=== PATIENT | male | born 1950 | race Caucasian/White ===

== ENCOUNTER 2016-10-28 18:34 | Inpatient (IN) | payer MEDICARE, MEDICAID ==
[2016-10-28] MEDS ORDERED: IPRATROPIUM BROMIDE 0.02% NEB 0.5 MG/2.5 ML AMPUL NEB PRN (19:43)
[2016-10-28] MEDS ORDERED: ALBUTEROL SULFATE 0.083% NEB 2.5 MG/3 ML AMPUL NEB ONE (19:43)
[2016-10-28] MEDS ORDERED: METHYLPREDNISOLONE INJ 125 MG/2 ML SDV IV ONE (19:47)
[2016-10-28 19:49] LABS: ABSOLUTE LYMPHOCYTES (AUTO) 0.8 10^3/uL (0.5-4.7); ABSOLUTE MONOCYTES (AUTO) 0.6 10^3/uL (0.1-1.4); ABSOLUTE NEUT (AUTO) 4.8 10^3/uL (1.7-8.2); BASOPHILS % (AUTO) 0.7 % (0-2); EOSINOPHILS % (AUTO) 0.1 % (0-6); HEMATOCRIT 33.4 % (37.9-51.0); HEMOGLOBIN 10.9 g/dL (13.5-17.0); HGB HCT DIFFERENCE -0.7; LYMPHOCYTES % (AUTO) 12.6 % (13-45); MEAN CORPUSCULAR HEMOGLOBIN 25.5 pg (27.0-33.4); MEAN CORPUSCULAR HGB CONC 32.8 g/dL (32.0-36.0); MEAN CORPUSCULAR VOLUME 78 fl (80-97); MONOCYTES % (AUTO) 9.7 % (3-13); RED BLOOD COUNT 4.28 10^6/uL (4.35-5.55); RED CELL DISTRIBUTION WIDTH 23.2 % (11.5-14.0); SEGMENTED NEUTROPHILS % (AUTO) 76.9 % (42-78); WHITE BLOOD COUNT 6.2 10^3/uL (4.0-10.5)
[2016-10-28 20:00] LABS: ALANINE AMINOTRANSFERASE 31 U/L (21-72); ALBUMIN 3.4 g/dL (3.5-5.0); ALKALINE PHOSPHATASE 125 U/L (38-126); ANION GAP 11 (5-19); ASPARTATE AMINO TRANSFERASE 27 U/L (17-59); BILIRUBIN,TOTAL 1.4 mg/dL (0.2-1.3); BLOOD UREA NITROGEN 15 mg/dL (7-20); CALCIUM 9.5 mg/dL (8.4-10.2); CARBON DIOXIDE 23 mmol/L (22-30); CHLORIDE 106 mmol/L (98-107); CREATININE RESULT 0.77 mg/dL (0.52-1.25); GLUCOSE 114 mg/dL (75-110); POTASSIUM 4.4 mmol/L (3.6-5.0); SODIUM 140.4 mmol/L (137-145); TOTAL PROTEIN 6.1 g/dL (6.3-8.2)
[2016-10-28 20:03] LABS: ALCOHOL < 10 mg/dL (NONE DETECTED)
[2016-10-28 20:12] LABS: CREATINE KINASE MB 1.9 ng/mL (<4.55); TROPONIN I 0.019 ng/mL
[2016-10-28 20:30] LABS: ARTERIAL BLOOD BASE EXCESS -0.7 mmol/L; ARTERIAL BLOOD O2 SATURATION 99.5 % (94-98)
[2016-10-28 20:43] LABS: URINE BARBITURATES SCREEN NEGATIVE; URINE METHADONE SCREEN NEGATIVE; URINE OPIATES LOW NEGATIVE; URINE PHENCYCLIDINE SCREEN NEGATIVE
--- NOTE | 2016-10-28 23:19 | ER Document Report ---
[id number]: No - HPI Patient complains to provider of: Difficulty breathing Onset: This afternoon Onset/Duration: Sudden, Persistent Associated symptoms: Body/muscle aches - Cramping, Shortness of breath, Weakness. denies: Chest pain, Nonproductive cough, Productive cough <VIRAL MCKEON - Last Filed: 10/28/16 23:25> <REINA ALONSO - Last Filed: 11/09/16 13:06> - General Chief Complaint: Shortness Of Breath Stated Complaint: WEAKNESS Notes: Patient is a 66-year-old male presenting to the emergency department via EMS concerned of difficulty breathing onset this afternoon. Patient is on 2 L of oxygen at home at nighttime, and has a past history of intubation. Patient quit smoking about 8-9 years ago. Patient received a pacemaker 6 years ago, but today he is tachycardic. Patient reports weakness and muscle cramps, but denies cough, flulike symptoms or chest pain. Patient also mentions that he has been having trouble standing and that he has fallen a couple times recently. (VIRAL MCKEON) - Related Data Allergies/Adverse Reactions: No Known Allergies Allergy (Verified 07/13/16 22:43) Home Medications: Current Home Medications Albuterol Sulfate [Albuterol Sulfate 2.5mg/3 mL] 1 vial IH Q6HP PRN 10/29/16 [ History] Aripiprazole [Abilify 10 mg Tablet] 10 mg PO DAILY 10/29/16 [History] Cyclobenzaprine HCl [Flexeril 10 mg Tablet] 10 mg PO TID 10/29/16 [History] Dabigatran Etexilate Mesylate [Pradaxa 150 mg Capsule] 150 mg PO Q12 10/29/16 [ History] Fluticasone/Salmeterol [Advair 250-50 Diskus 28 dose] 1 inh IH DAILY 10/29/16 [ History] Furosemide [Lasix] 20 mg PO DAILY@1200 10/29/16 [History] Furosemide [Lasix] 40 mg PO QAM 10/29/16 [History] Glipizide [Glipizide ER] 5 mg PO DAILY 10/29/16 [History] Montelukast Sodium [Singulair 10 mg Tablet] 10 mg PO DAILY 10/29/16 [History] Pregabalin [Lyrica 100 Mg Capsule] 100 mg PO BID 10/29/16 [History] Trazodone HCl [Desyrel 50 mg Tablet] 50 mg PO QHS 10/29/16 [History] Past Medical History - General Information source: Patient - Social History Smoking Status: Unknown if Ever Smoked Family History: Reviewed & Not Pertinent - Past Medical History Cardiac Medical History: Reports: Hx Atrial Fibrillation, Hx Hypercholesterolemia Pulmonary Medical History: Reports: Hx Asthma, Hx COPD - on O2 Endocrine Medical History: Reports: Hx Diabetes Mellitus Type 2 Musculoskeltal Medical History: Reports Hx Arthritis Psychiatric Medical History: Reports: Hx Bipolar Disorder, Hx Depression Past Surgical History: Reports: Hx Cardiac Surgery - [employer] pacemaker, Hx Cholecystectomy, Hx Pacemaker - Immunizations Immunizations up to date: Yes Hx Diphtheria, Pertussis, Tetanus Vaccination: Yes <VIRAL MCKEON - Last Filed: 10/28/16 23:25> Review of Systems - Review of Systems Constitutional: See HPI, Weakness EENT: No symptoms reported Cardiovascular: No symptoms reported. denies: Chest pain Respiratory: See HPI, Short of breath. denies: Cough Gastrointestinal: No symptoms reported Genitourinary: No symptoms reported Male Genitourinary: No symptoms reported Musculoskeletal: See HPI, Muscle pain - Cramps Skin: No symptoms reported Hematologic/Lymphatic: No symptoms reported Neurological/Psychological: No symptoms reported -: Yes All other systems reviewed and negative <VIRAL MCKEON - Last Filed: 10/28/16 23:25> Physical Exam - General General appearance: Alert - HEENT Head: Normocephalic, Atraumatic Eyes: Normal Pupils: PERRL - Respiratory Chest status: Nontender Breath sounds: Decreased air movement - Bilaterally. No: Rales, Wheezing Chest palpation: Normal - Cardiovascular Rhythm: Tachycardia Heart sounds: Normal auscultation Murmur: Yes - 3/4 systolic injection murmur - Abdominal Inspection: Other - Visceral hernia that is reducable. Tenderness: Nontender - Back Back: Normal, Nontender - Extremities General upper extremity: Normal inspection General lower extremity: Other - Bilateral 1+ pitting edema - Neurological Neuro grossly intact: Yes Cognition: Normal Yobany Coma Scale Eye Opening: Spontaneous Yobany Coma Scale Verbal: Oriented [place] Coma Scale Motor: Obeys Commands Yobany Coma Scale Total: 15 Speech: Normal - Psychological Associated symptoms: Normal affect, Agitated - Skin Skin Temperature: Warm Skin Moisture: Dry Skin Color: Normal <VIRAL MCKEON - Last Filed: 10/28/16 23:25> Course - Laboratory Result Diagrams: 10/28/16 19:30 10/28/16 19:30 <VIRAL MCKEON - Last Filed: 10/28/16 23:25> - Laboratory Result Diagrams: 10/29/16 08:40 10/31/16 04:09 <REINA ALONSO - Last Filed: 11/09/16 13:06> - Re-evaluation Re-evalutation: 10/28/16 23:45 I personally performed the services described in the documentation, reviewed and edited the documentation which was dictated to my scribe in my presence, and it accurately records my words and actions. Patient presented to the emergency prone chief complaint is shortness of breath. Patient appears much older than his stated age and looks chronically ill -appearing and unkempt. He is been admitted here previously. Has a history of a pacemaker tachycardic on examination pulse ox reading in the mid 80s with good waveform lungs were diminished bilaterally no Rales trace pitting edema chest x- ray negative pneumonia or congestive heart failure. Tachycardic on the monitor improved with Solu-Medrol albuterol and Atrovent. Elevated BNP but no overt clinical signs of congestive heart failure. Patient denies any chest pain is not actively short of breath. Patient is poor IV access discussed with Dr. Newberry initially [address] scan to rule out pulmonary embolism. At this point is maintaining good oxygen saturation ABG is not acute or emergent acetaminophen to the hospital further assessment and evaluation 11/08/16 08:52 (REINA ALONSO) - Vital Signs Vital signs: Temp Pulse Resp BP Pulse Ox 97.3 F 128 H 20 107/70 95 10/31/16 15:44 10/31/16 15:44 10/31/16 15:44 10/31/16 15:44 10/31/16 15:44 (VIRAL MCKEON) (REINA ALONSO) - Laboratory Laboratory results interpreted by me: 10/28/16 10/28/16 10/28/16 19:30 19:30 19:30 RBC 4.28 L Hgb 10.9 L Hct 33.4 L MCV 78 L MCH 25.5 L RDW 23.2 H Lymphocytes % 12.6 L Carbonic Acid ABG pCO2 ABG pO2 ABG O2 Saturation Glucose 114 H POC Glucose Total Bilirubin 1.4 H NT-Pro-B Natriuret Pep 7740 H Total Protein 6.1 L Albumin 3.4 L 10/28/16 10/29/16 20:15 01:15 RBC Hgb Hct MCV MCH RDW Lymphocytes % Carbonic Acid 1.00 L ABG pCO2 33.3 L ABG pO2 207.1 H ABG O2 Saturation 99.5 H Glucose POC Glucose 185 H Total Bilirubin NT-Pro-B Natriuret Pep Total Protein Albumin (VIRAL MCKEON) (REINA ALONSO) Discharge <VIRAL MCKEON - Last Filed: 10/28/16 23:25> - Discharge Admitting Provider: Hospitalist Unit Admitted: IMCU <REINA ALONSO - Last Filed: 11/09/16 13:06> - Discharge Clinical Impression: COPD exacerbation Dyspnea Qualifiers: Dyspnea type: unspecified Qualified Code(s): R06.00 - Dyspnea, unspecified Condition: Stable Disposition: ADMITTED INPATIENT Scribe Documentation - Scribe Written by Demetria:: Viral Mckeon 10/28/2016 2319 acting as scribe for :: Wil <VIRAL MCKEON - Last Filed: 10/28/16 23:25>
[2016-10-29] MEDS ORDERED: DILTIAZEM HCL INJ 25 MG/5 ML VIAL ONE (01:35)
[2016-10-29] MEDS ORDERED: FUROSEMIDE INJ/PF 20 MG/2 ML SDV IV ONE (02:02)
[2016-10-29] MEDS ORDERED: GUAIFENESIN SYRP 200 MG/10 ML UDC PO PRN (02:05)
[2016-10-29] MEDS ORDERED: ALBUTEROL SULFATE 0.083% NEB 2.5 MG/3 ML AMPUL NEB PRN (02:05)
[2016-10-29] MEDS ORDERED: GLUCAGON,HUMAN RECOMB 1 MG INJ IM PRN (02:09)
[2016-10-29] MEDS ORDERED: DEXTROSE 40% GEL 15 GM TUBE PO PRN ×2 (02:09)
[2016-10-29] MEDS ORDERED: DEXTROSE 50%-WATER 25 GM/50 ML DISP.SYRIN IV PRN ×2 (02:09)
[2016-10-29] MEDS ORDERED: ACETAMINOPHEN 325 MG TABLET PO PRN (02:13)
--- NOTE | 2016-10-29 02:41 | PDOC H&P ---
History of Present Illness Admission Date/PCP: 10/29/16 00:00 Dr. Etienne Pain management, [facility] Patient complains of: Difficulty breathing. History of Present Illness: FANG HERNANDEZ is a 66 year old male with underlying 24/7 2 L oxygen per nasal cannula home O2 dependent COPD, obstructive sleep apnea, with CPAP currently in the process of being set up, atrial fibrillation, on Pradaxa for same, asthma, type II diabetes mellitus, arthritis, bipolar disorder, who presents to the emergency room for evaluation of above complaint. Patient has been discussed with emergency room physician who evaluated the patient. Patient himself is somewhat of a difficult historian at times.. Describes a 2 day history of slowly progressive difficulty breathing, in particular with much of any exertion. Cough a bit more productive than usual. However, denies nausea vomiting, fever chills, chest or abdominal pain, diarrhea or dysuria. Neither antibiotic usage nor hospitalization in the past 3 months. Persistently tachycardic into the 130 plus range in the emergency room. Laboratory results are listed in [facility] and are reviewed. X-ray summary results are listed below, with full report(s) reviewed. . EKG reviewed. And compared to a tracing from December 08 of last year. Social history/personal habits: . Lives with son. No use of alcohol tobacco or illicit drugs. Allergies/adverse reactions NKDA. Home medications are reviewed bottle review and discussion with patient and have been reconciled by nursing staff in [facility]. Home medications initially autopopulated into [facility] may not accurately reflect patient's true medications, dosages, and/or frequencies. Compliant with medications. No recent medication changes. Unfortunately, patient uncertain of a remaining medication and dosage with son stating patient has been out of this medication for approximately a week or so. Son is to find out the name of this medication call the hospital. Order has been given to nursing staff to contact M.D. when this final medication has been identified. REVIEW OF SYSTEMS: Constitutional: No fever or chills. Eyes: Wears glasses. ENT: No swallowing problems or complaints. Partial hearing loss. Pulmonary: See history and present illness. Cardiovascular: No current complaints, including chest pain. Gastrointestinal: No current complaints, including nausea or vomiting. Skin: No current complaints, including rashes. Hematologic: No unusual easy bruising or bleeding. Neurologic: No current complaints, including numbness or tingling. Musculoskeletal: Joint pain from arthritis. Psychiatric: Mild depression; denies suicidal or homicidal ideation. Endocrine: No current complaints, including polyuria. Genitourinary: No current complaints, including dysuria. PHYSICAL EXAMINATION: 5 feet 7 inches tall. 95.3 kg. Blood pressure 121/84. Pulse 132 and slightly irregular. 95% saturation on 5 L oxygen per nasal cannula. Respirations are 26 and unlabored. Temperature 98.4. Obese chronically ill-appearing male, somewhat disheveled in appearance, appearing number of years older than his stated age. Pleasant awake alert and cooperative. No obvious distress other than somewhat anxious. Son and a male handle sewer of son are present at his side; patient approves. Skin is warm and dry. No grossly obvious evidence of rash in areas of skin examined. No subcutaneous nodules palpated. ENT: Hearing grossly normal to normal conversation. Tongue midline on protrusion pink and slightly tacky. Eyes: No scleral icterus. Pupils equal and reactive to light at 4 mm. Mosses conjunctivae. Neck is supple and nontender to gentle active range of motion and palpation. Midline trachea. No palpable thyroid nodule mass enlargement or tenderness. Lymphatic: No palpable cervical or clavicular nodes. Neck and lymphatic exams limited by patient body habitus. Psychiatric: Fair to reasonable insight into acute and chronic medical issues. Oriented to time location and why here. Lungs: Auscultation reveals clear and equal breath sounds bilaterally. No use of accessory respiratory muscles. Cardiovascular: Heart slightly irregular rate and rhythm, without gallop murmur or rub. No carotid or abdominal aortic bruits. Scant bilateral symmetric nonpitting ankle and pedal edema. Faintly palpable dorsalis pedis pulses. Abdomen: soft, obese, somewhat distended nontender with positive bowel sounds. Unable to adequately evaluate abdomen for masses or organomegaly due to distention and body habitus. Extremities: Feet are warm and dry. No calf tenderness to compression. No grossly obvious visual evidence of calf swelling. Gentle manipulation of lower extremities fails to reveal any obvious evidence of injury or instability to knees hips or ankles. Neurologic: Moves upper extremities grossly normally. Patellar reflexes absent. Absent Babinski. Light touch is intact at feet. Dorsiflexion and plantarflexion of feet 5 / 5 and symmetric. Past Medical History Cardiac Medical History: Reports: Atrial Fibrillation, Hyperlipidema Denies: Congestive Heart Failure, DVT, Myocardial Infarction, Pulmonary Embolism Pulmonary Medical History: Reports: Asthma, Chronic Obstructive Pulmonary Disease (COPD) - on O2, Sleep Apnea EENT Medical History: Reports: Eyes - Glasses, Ears - Partial hearing loss Denies: Throat Neurological Medical History: Denies: Hemorrhagic CVA, Ischemic CVA, Seizures Endocrine Medical History: Reports: Diabetes Mellitus Type 2 Denies: Diabetes Mellitus Type 1, Hyperthyroidism, Hypothyroidism Renal/ Medical History: Reports: None GI Medical History: Reports: Gastroesophageal Reflux Disease Denies: Cirrhosis, Hepatitis Musculoskeltal Medical History: Reports: Arthritis Skin Medical History: Reports: None Denies: Eczema, Psoriasis Psychiatric Medical History: Reports: Bipolar Disorder, Depression Denies: Alcohol Dependency, Substance Abuse, Tobacco Dependency Infectious Medical History: Denies: Hepatitis B, Hepatitis C Past Surgical History Past Surgical History: Reports: Cholecystectomy, Pacemaker Social History Information Source: Patient, Emergency Med Personnel, [facility] Records Lives with: Family Smoking Status: Unknown if Ever Smoked Frequency of Alcohol Use: None Hx Recreational Drug Use: No Drugs: None Hx Prescription Drug Abuse: No - Advance Directive Resuscitation Status: Full Code Surrogate healthcare decision maker:: Son, who is present at patient's side with patient's approval. Family History Family History: Reviewed & Not Pertinent Parental Family History Reviewed: Yes Children Family History Reviewed: Yes Sibling(s) Family History Reviewed.: Yes Medication/Allergy Home Medications: Albuterol Sulfate [Albuterol Sulfate 2.5mg/3 mL] 1 vial IH Q6HP PRN 10/29/16 Aripiprazole [Abilify 10 mg Tablet] 10 mg PO DAILY 10/29/16 Cyclobenzaprine HCl [Flexeril 10 mg Tablet] 10 mg PO TID 10/29/16 Dabigatran Etexilate Mesylate [Pradaxa 150 mg Capsule] 150 mg PO Q12 10/29/16 Fluticasone/Salmeterol [Advair 250-50 Diskus 28 dose] 1 inh IH DAILY 10/29/16 Furosemide [Lasix] 20 mg PO DAILY@1200 10/29/16 Furosemide [Lasix] 40 mg PO QAM 10/29/16 Glipizide [Glipizide ER] 5 mg PO DAILY 10/29/16 Montelukast Sodium [Singulair 10 mg Tablet] 10 mg PO DAILY 10/29/16 Pregabalin [Lyrica 100 Mg Capsule] 100 mg PO BID 10/29/16 Trazodone HCl [Desyrel 50 mg Tablet] 50 mg PO QHS 10/29/16 Allergies/Adverse Reactions: No Known Allergies Allergy (Verified 07/13/16 22:43) Physical Exam Vital Signs: Temp Pulse Resp BP Pulse Ox 98.4 F 95 18 126/94 H 93 10/29/16 01:44 10/28/16 18:45 10/29/16 01:30 10/29/16 01:30 10/29/16 01:30 Results Impressions: Chest X-Ray 10/28/16 00:00 IMPRESSION: No consolidation or pleural effusion. Chest/Abdomen CTA 10/28/16 22:39 IMPRESSION: NO PULMONARY EMBOLI. MILD INTERSTITIAL EDEMA WITH TRACE BILATERAL PLEURAL EFFUSIONS IN THE SETTING OF CARDIOMEGALY. PARTIAL VISUALIZATION OF AT LEAST MILD ASCITES. STABLE TO SLIGHT INCREASE IN MEDIASTINAL AND HILAR LYMPHADENOPATHY. Assessment & Plan - Diagnosis (1) Ascites Qualifiers: Ascites type: other type Qualified Code(s): R18.8 - Other ascites Is this a current diagnosis for this admission?: YesPlan: Noted on CT scan. Denies any history of same or underlying biliary disease, including hepatitis or cirrhosis. Abdominal ultrasound. (2) Atrial fibrillation with RVR Is this a current diagnosis for this admission?: YesPlan: Rate control with when necessary Cardizem; Cardizem drip if necessary. Magnesium and TSH pending. (3) CHF exacerbation Qualifiers: Congestive heart failure type: unspecified congestive heart failure type Qualified Code(s): I50.9 - Heart failure, unspecified Is this a current diagnosis for this admission?: YesPlan: Possibly secondary to atrial fibrillation with rapid ventricular response. Son does state that the single medication he was uncertain of patient has been out for approximately one week. This may also be a contributing cause. IV Lasix now and later this morning. Consider cardiology consult. Normally followed outpatient by Dr. Etienne. Serial troponins. (4) COPD exacerbation Is this a current diagnosis for this admission?: YesPlan: Patient will be admitted under COPD exacerbation protocol. Incentive spirometry twice a day. Scheduled DuoNeb's. PRN albuterol nebs Antibiotics will consist of intravenous Zithromax along with Rocephin. No antibiotic use or hospitalization within the past 3 months.. I strongly encouraged patient to notify staff should patient feel that respiratory status is worsening. Patient is a full code. I have strongly encouraged patient not to get out of bed without notifying staff , , to avoid a fall with injury. Knee high SCDs for DVT prophylaxis; with patient on Pradaxa, no need for Lovenox or heparin. Impression and plans were discussed with patient, and son, both of whom concur. Time spent in evaluation and management of patient: 78 minutes. (5) Elevated LFTs Is this a current diagnosis for this admission?: YesPlan: Follow-up chemistry. (6) Anemia Qualifiers: Anemia type: unspecified type Qualified Code(s): D64.9 - Anemia, unspecified Is this a current diagnosis for this admission?: YesPlan: Chronic.Follow-up CBC with differential. No need for transfusion at present time. (7) Anticoagulated Is this a current diagnosis for this admission?: YesPlan: Resume home medications as appropriate once these have been reviewed. (8) Pulmonary nodules Is this a current diagnosis for this admission?: YesPlan: Outpatient follow-up. (9) Fall Qualifiers: Encounter type: initial encounter Qualified Code(s): W19.XXXA - Unspecified fall, initial encounter Is this a current diagnosis for this admission?: YesPlan: 1 recently. No syncope. Weak all over at times, according to patient. Orthostatic vital signs every 4 hours while awake. Physical therapy consult. (10) AMALIA (obstructive sleep apnea) Is this a current diagnosis for this admission?: YesPlan: CPAP. - Inpatient Certification Based on my medical assessment, after consideration of the patient's comorbidities, presenting symptoms, or acuity I expect that the services needed warrant INPATIENT care.: Yes I certify that my determination is in accordance with my understanding of Medicare's requirements for reasonable and necessary INPATIENT services [42 CFR 412.3e].: Yes Medical Necessity: Significant Comorbidiites Make Outpatient Treatment Too Risky , Need Close Monitoring Due to Risk of Patient Decompensation, Need For Continuous Telemetry Monitoring, Need for Nebulizer Therapy and Monitoring of Response, Need for IV Antibiotics, Risk of Diagnosis Which Will Require Inpatient Eval/Care/Monitoring Post Hospital Care: D/C or Transfer Summary
[2016-10-29] MEDS: DILTIAZEM HCL INJ 25 MG/5 ML VIAL IV PRN ×2 (03:12→09:00)
[2016-10-29] MEDS ORDERED: INFLUENZA ADLT QUAD (36MOS+) 2016-17 VAC 0.5 ML SYR IM PRN (03:14)
[2016-10-29 04:07] LABS: APPEARANCE,URINE CLEAR; BILIRUBIN,URINE NEGATIVE (NEGATIVE); GLUCOSE, URINE NEGATIVE (NEGATIVE); KETONES,URINE TRACE mg/dL (NEGATIVE); LEUKOCYTE ESTERASE,URINE NEGATIVE (NEGATIVE); NITRITE,URINE NEGATIVE (NEGATIVE); PROTEIN,URINE 30 mg/dL (NEGATIVE); URINE SPECIFIC GRAVITY 1.042; UROBILINOGEN,URINE NEGATIVE mg/dL (<2.0)
[2016-10-29] MEDS ORDERED: DILTIAZEM HCL/D5W 125 MG/125 ML RTUINJ IV ONE (04:35)
[2016-10-29] MEDS: DILTIAZEM HCL/D5W 125 MG/125 ML RTUINJ IV PRN ×2 (04:49→21:44)
[2016-10-29] MEDS ORDERED: NORMAL SALINE 1000 ML 250 ML IV ONE (05:29)
[2016-10-29] MEDS ORDERED: IPRATROPIUM/ALBUTEROL 0.5-2.5 MG/3 ML AMPUL NEB SCH (08:00)
--- NOTE | 2016-10-29 08:19 | EKG REPORT ---
SEVERITY:- ABNORMAL ECG - SINUS TACHYCARDIA RIGHT BUNDLE BRANCH BLOCK AND LPFB : Confirmed by: Jose Luis Etienne MD 29-Oct-2016 08:19:18
--- NOTE | 2016-10-29 08:20 | EKG REPORT ---
SEVERITY:- ABNORMAL ECG - ATRIAL FLUTTER WITH 2:1 AV BLOCK RIGHT BUNDLE BRANCH BLOCK AND LPFB : Confirmed by: Jose Luis Etienne MD 29-Oct-2016 08:20:14
[2016-10-29 08:56] LABS: ABSOLUTE LYMPHOCYTES (AUTO) 0.4 10^3/uL (0.5-4.7); ABSOLUTE MONOCYTES (AUTO) 0.1 10^3/uL (0.1-1.4); ABSOLUTE NEUT (AUTO) 3.2 10^3/uL (1.7-8.2); BASOPHILS % (AUTO) 0.4 % (0-2); HEMOGLOBIN 11.3 g/dL (13.5-17.0); HGB HCT DIFFERENCE -1.1; LYMPHOCYTES % (AUTO) 11.1 % (13-45); MEAN CORPUSCULAR HEMOGLOBIN 25.3 pg (27.0-33.4); MEAN CORPUSCULAR HGB CONC 32.3 g/dL (32.0-36.0); MEAN CORPUSCULAR VOLUME 78 fl (80-97); RED BLOOD COUNT 4.46 10^6/uL (4.35-5.55); RED CELL DISTRIBUTION WIDTH 23.4 % (11.5-14.0); SEGMENTED NEUTROPHILS % (AUTO) 86.5 % (42-78); WHITE BLOOD COUNT 3.7 10^3/uL (4.0-10.5)
[2016-10-29 09:13] LABS: ALANINE AMINOTRANSFERASE 32 U/L (21-72); ALBUMIN 3.7 g/dL (3.5-5.0); ALKALINE PHOSPHATASE 129 U/L (38-126); ANION GAP 13 (5-19); ASPARTATE AMINO TRANSFERASE 27 U/L (17-59); BILIRUBIN,TOTAL 1.8 mg/dL (0.2-1.3); BLOOD UREA NITROGEN 16 mg/dL (7-20); CALCIUM 9.6 mg/dL (8.4-10.2); CARBON DIOXIDE 23 mmol/L (22-30); CHLORIDE 104 mmol/L (98-107); CREATININE RESULT 0.76 mg/dL (0.52-1.25); GLUCOSE 206 mg/dL (75-110); SODIUM 140.1 mmol/L (137-145); TOTAL PROTEIN 6.5 g/dL (6.3-8.2)
[2016-10-29] MEDS: CEFTRIAXONE 1 GM/D5W RTU 1 GM/50 ML RTUPB IV SCH (09:34)
[2016-10-29] MEDS ORDERED: FUROSEMIDE INJ/PF 40 MG/4 ML SDV IV ONE (10:00)
[2016-10-29] MEDS ORDERED: MONTELUKAST SODIUM 10 MG TABLET PO SCH (10:00)
[2016-10-29] MEDS: FLUTICASONE/SALMETEROL DISKUS 250-50 MCG/DOSE IH SCH (10:04)
[2016-10-29] MEDS: AZITHROMYCIN 500 MG in DEXTROSE 5%-WATER 250 ML IV SCH (10:49)
[2016-10-29] MEDS ORDERED: LEVALBUTEROL HCL NEB 0.63 MG/3 ML AMPUL NEB PRN (11:11)
[2016-10-29] MEDS ORDERED: CYCLOBENZAPRINE HCL 10 MG TABLET PO PRN (11:17)
[2016-10-29] MEDS ORDERED: ARIPIPRAZOLE 5 MG TABLET PO ONE (12:00)
[2016-10-29] MEDS: INSULIN LISPRO 100 UNIT/ML 3 ML VIAL SUBCUT PRN ×3 (12:02→23:44)
[2016-10-29] MEDS: FUROSEMIDE 20 MG TABLET PO SCH (12:05)
--- NOTE | 2016-10-29 13:45 | PDOC PROGRESS REPORT ---
Subjective Progress Note for:: 10/29/16 Subjective:: The patient was seen earlier today on rounds. She states that he feels much better than he did when he came in. The patient denies any nausea, vomiting, diarrhea, shortness of breath, dizziness, chest pain, heart palpitations, wheezing, fevers, or chills. The patient has remained afebrile. Blood pressures have been in a good range. When prompted the patient voices no other concerns at this time. Review of systems: The rest of the review of systems is negative. Physical Exam Vital Signs: Temp Pulse Resp BP Pulse Ox 97.3 F 114 H 17 102/68 100 10/29/16 07:57 10/29/16 13:00 10/29/16 08:40 10/29/16 13:00 10/29/16 08:40 Pulse Oximeter Continuous Start: 10/29/16 02: 05 Freq: RTQ4 Status: Active Document 10/29/16 08:40 CW (Rec: 10/29/16 10:33 [facility] [id number]) Pulse Oximetry Assessment Oxygen Saturation (92-100) 100 Oxygen Flow Rate (L/min) 3 Oxygen Delivery Method Nasal Cannula Equipment Usage Equipment in Use Continuous SpO2 Machine # 5 Intake & Output 10/27/16 10/28/16 10/29/16 23:59 23:59 23:59 Intake Total 6 Output Total 450 Balance -444 General appearance: PRESENT: no acute distress, cooperative, well-developed, well-nourished Head exam: PRESENT: atraumatic, normocephalic Eye exam: PRESENT: conjunctiva pink, EOMI, PERRLA. ABSENT: scleral icterus Ear exam: PRESENT: normal external ear exam Mouth exam: PRESENT: moist, tongue midline Neck exam: ABSENT: carotid bruit, JVD, lymphadenopathy, thyromegaly Respiratory exam: PRESENT: clear to auscultation fernando. ABSENT: rales, rhonchi, wheezes Cardiovascular exam: PRESENT: irregular rhythm. ABSENT: diastolic murmur, rubs , systolic murmur Pulses: PRESENT: normal dorsalis pedis pul Vascular exam: PRESENT: normal capillary refill GI/Abdominal exam: PRESENT: normal bowel sounds, soft. ABSENT: distended, guarding, mass, organolmegaly, rebound, tenderness Rectal exam: PRESENT: deferred Extremities exam: PRESENT: full ROM. ABSENT: calf tenderness, clubbing, pedal edema Neurological exam: PRESENT: alert, awake, oriented to person, oriented to place , oriented to time, oriented to situation, CN II-XII grossly intact. ABSENT: motor sensory deficit Psychiatric exam: PRESENT: appropriate affect, normal mood. ABSENT: homicidal ideation, suicidal ideation Skin exam: PRESENT: dry, intact, warm. ABSENT: cyanosis, rash Results Laboratory Results: 10/29/16 08:40 10/29/16 08:40 10/29/16 10/29/16 10/29/16 03:19 08:40 08:40 WBC 3.7 L RBC 4.46 Hgb 11.3 L Hct 35.0 L MCV 78 L MCH 25.3 L MCHC 32.3 RDW 23.4 H Plt Count 231 Seg Neutrophils % 86.5 H Lymphocytes % 11.1 L Monocytes % 2.0 L Eosinophils % 0.0 Basophils % 0.4 Absolute Neutrophils 3.2 Absolute Lymphocytes 0.4 L Absolute Monocytes 0.1 Absolute Eosinophils 0.0 Absolute Basophils 0.0 Sodium 140.1 Potassium 5.0 Chloride 104 Carbon Dioxide 23 Anion Gap 13 BUN 16 Creatinine 0.76 Est GFR ( Amer) > 60 Est GFR (Non-Af Amer) > 60 Glucose 206 H Calcium 9.6 Total Bilirubin 1.8 H AST 27 ALT 32 Alkaline Phosphatase 129 H Total Protein 6.5 Albumin 3.7 Urine Color YELLOW Urine Appearance CLEAR Urine pH 5.0 Ur Specific [place] 1.042 Urine Protein 30 H Urine Glucose (UA) NEGATIVE Urine Ketones TRACE H Urine Blood NEGATIVE Urine Nitrite NEGATIVE Ur Leukocyte Esterase NEGATIVE Urine WBC (Auto) 1 10/29/16 08:40 Troponin I < 0.012 Impressions: Chest X-Ray 10/28/16 00:00 IMPRESSION: No consolidation or pleural effusion. Chest/Abdomen CTA 10/28/16 22:39 IMPRESSION: NO PULMONARY EMBOLI. MILD INTERSTITIAL EDEMA WITH TRACE BILATERAL PLEURAL EFFUSIONS IN THE SETTING OF CARDIOMEGALY. PARTIAL VISUALIZATION OF AT LEAST MILD ASCITES. STABLE TO SLIGHT INCREASE IN MEDIASTINAL AND HILAR LYMPHADENOPATHY. Abdomen Ultrasound 10/29/16 00:00 IMPRESSION: MILD ASCITES RIGHT UPPER QUADRANT. SPLENOMEGALY. Assessment & Plan - Diagnosis (1) Atrial fibrillation with RVR Is this a current diagnosis for this admission?: YesPlan: Will continue Cardiofelia mcclure. Do appreciate cardiology input with this. She is anticoagulated with Pradaxa. (2) CHF exacerbation Qualifiers: Congestive heart failure type: unspecified congestive heart failure type Qualified Code(s): I50.9 - Heart failure, unspecified Is this a current diagnosis for this admission?: Yes (3) COPD exacerbation Is this a current diagnosis for this admission?: Yes (5) Elevated LFTs Is this a current diagnosis for this admission?: Yes (6) AMALIA (obstructive sleep apnea) Is this a current diagnosis for this admission?: Yes (7) COPD (chronic obstructive pulmonary disease) Qualifiers: COPD type: unspecified COPD Qualified Code(s): J44.9 - Chronic obstructive pulmonary disease, unspecified (8) Pulmonary nodules Is this a current diagnosis for this admission?: Yes (9) Ascites Qualifiers: Ascites type: other type Qualified Code(s): R18.8 - Other ascites Is this a current diagnosis for this admission?: YesPlan: Uncertain of the exact etiology of this. Could possibly be due to heart failure. Will obtain echocardiogram and cardiology. Get her paracentesis. (10) Diabetes mellitus type 2 in obese Is this a current diagnosis for this admission?: YesPlan: Will continue sliding scale coverage. (11) Anticoagulated Is this a current diagnosis for this admission?: Yes - Time Time Spent with patient: on this visit including assessment, plan, physical examination, family meeting, and specialty collaboration, and patient education is 35 minutes. Time Spent with patient: 35 or more minutes Medications reviewed and adjusted accordingly: Yes Anticipated discharge: Home Within: within 48 hours
[2016-10-29] MEDS ORDERED: FLECAINIDE ACETATE 100 MG TABLET PO ONE (21:00)
[2016-10-29] MEDS: PREGABALIN 100 MG CAPSULE PO SCH (21:42)
[2016-10-29] MEDS: DABIGATRAN ETEXILATE 150 MG CAPSULE PO SCH (21:42)
[2016-10-29] MEDS: DILTIAZEM HCL 120 MG CAP.SR.24H PO SCH (21:43)
--- NOTE | 2016-10-29 23:53 | CONSULTATION REPORT E ---
Consultation Report NAME: FANG HERNANDEZ : 1950 AGE: 66Y DATE: 10/29/2016 317 A TO: MARCO ANTONIO COLBERT M.D. FROM: JADON WEATHERS M.D. Requesting Physician CHIEF COMPLAINT: Two days of shortness of breath and profound weakness. HISTORY OF PRESENT ILLNESS: This is a 66-year-old, very pleasant white gentleman who came to the ER complaining of severe shortness of breath and profound weakness with a history that he fell out of bed several days ago. In the ER, EKG showed paroxysmal atrial fibrillation and flutter, initially 136 BPM and a blood pressure of 125/90. He indeed was short of breath and the chest x-ray showed mild cardiomegaly but there was no consolidation. A CT scan of the chest did show pleural effusion with mild interstitial edema and increased pulmonary nodules with perihilar lymph nodes and there was said to be mild ascites in the right upper quadrant. He was diagnosed with having atrial fibrillation with rapid ventricular response and was given p.r.n. doses of 25 mg of IV Cardizem. He was admitted to the floor and was given IV Lasix and he has begun to diurese. Cardiology was consulted for management of his atrial fibrillation with rapid ventricular response. The patient's cardiology problems include 1. Paroxysmal A Fib on rhythm control using flecainide 50 mg p.o. b.i.d. and stroke prevention with Pradaxa 150 mg b.i.d. based on his renal functions. His rate is controlled by CardizemCD 240 mg daily. At this time it is not certain that he is taking flecainide and Cardizem religiously as prescribed. I was also leery about him being compliant with the Pradaxa 150 mg b.i.d. but on talking to him became convinced when he showed the Pradaxa bottle (without a prescription label of the fill date to allow me to assess compliance) and, therefore, unable to do a medication reconciliation for noncompliance. It is important to be certain about his compliance with the Pradaxa protocol; otherwise, with him in atrial fibrillation and atrial flutter for unknown duration, and noncompliance of Pradaxa protocol, AAD may lead to conversion of his atrial fibrillation complicated by stroke. The patient has a normal EF of 65% by echo previously. His stress MPI was negative for reversible ischemia and, therefore, likely no significant coronary artery disease, he is supposed to be on magnesium supplement but compliance again is doubtful, and his EKG is known to show chronic right bundle branch block and left posterior fascicular block. 2. Shortness of breath: The patient is known to have idiopathic pulmonary fibrosis with left ventricular diastolic dysfunction and a previous PA systolic pressure of 79 by right heart catheterization in March 2016 at [facility]. This is, therefore, severe pulmonary hypertension. This sets him up for right heart failure and as evidenced by pill count that he has not been taking his Lasix. The dose is 40 mg a.m. and 20 mg p.m. 3. The patient is status post permanent pacemaker. This was implanted in 2009 for sick sinus syndrome, he has an AV sequential permanent pacemaker. This pacemaker is being followed by a fiberglass technician in [place]. 4. AMALIA .The patient has sleep apnea but refuses to use a CPAP device. He has diabetes with very uncontrolled blood sugars, after his admission his blood sugar varied from 298 to 217. 5. He has anemia and this is being followed by Dr. Palm and Dr. Ross, library circulation technician. He had been given IV iron. 6. He also has bipolar disorder and 7. chronic kidney disease with previous serum creatinine as high as 1.31 with a GFR of 58 mL/minute, i.e., CKD stage III. CURRENT MEDICATIONS: 1. Pravachol 20 mg daily. 2. Singulair 10 mg daily. 3. Nexium. 4. Furosemide 40 mg a.m. and 20 mg p.m. 5. Lyrica. 6. Flecainide 50 mg q.2 h. 7. Diltiazem extended release 240 mg daily. 8. Pradaxa 150 mg b.i.d. 9. Sedatives. 10. Inhalers. 11. Lantus insulin. 12. Muscle relaxants. PAST SURGICAL HISTORY: 1. Cholecystectomy. 2. Pacemaker. FAMILY HISTORY: Unknown. The patient is said to be adopted. SOCIAL HISTORY: The patient said he quit smoking 5-10 years ago. He denied drinking. He consumes 1-2 cups of coffee a day. ALLERGIES: None known. REVIEW OF SYSTEMS: Constitutional: The patient did not appear to be in distress after admission. His memory is intact. He has no fever or weakness. Endocrine: No polyuria, polydipsia, or polyphagia. Respiratory: He said his breathing has improved, occasional cough and he has chronic dyspnea with decreased exercise tolerance. Cardiovascular: He denied chest pains, denies palpitations and denies ankle swelling, dizziness or near syncope. Gastrointestinal: He denies nausea, vomiting or diarrhea, constipation, denies seeing any blood in the stool. Hematologic: Denies any bleeding tendency. He has chronic anemia. Had a recent fall and had a small laceration on his forehead which is healing. Genitourinary: He has minor lower urinary tract symptoms. Musculoskeletal: He denies myalgia and cramps. Neurological: He denies any specific unilateral weakness or numbness but did complain of severe fatigue prior to admission. PHYSICAL EXAMINATION: VITAL SIGNS: His blood pressure was 125/98 on admission and subsequently went down to 102/68, his heart rate originally was 136 and went up to 150 and recently because of IV Cardizem, his ventricular response is down to 114; he is in atrial fibrillation/flutter. His pulse oximetry on admission was 84 and now is normal. GENERAL:. He is alert and oriented x3. He has a decent memory about his pills but he was not certain where his flecainide and Cardizem bottles were located. He is in the process of calling home and finding out where they are to provide me evidence that he has been compliant with these medications prior to admission. In any case, since admission, he was not given any flecainide or oral Cardizem; these two will be resumed tonight. HEENT: No arcus senilis. No transverse ear crease. Oral cavity is normal, no thyromegaly. SKIN: Shows no ecchymosis. CARDIOVASCULAR: Heart showed elevated JVP, no carotid bruit, no vertebral bruit. PMI was not palpable. His heart rhythm was irregular, being that he is in atrial fibrillation and flutter. He has no S4, S1 is variable and S2 is loud and split. A 3/6 systolic ejection murmur was heard. Peripheral pulse were not palpable. RESPIRATORY: Lungs show very decreased air entry in the bases, no basilar crepitations heard. CHEST: Showed no deformity and no rib cage tenderness. ABDOMEN: Was huge, showed abdominal distension due to midline surgical incision complicated by two right-sided hernias; however, there was no hepatosplenomegaly that I could palpate. Bowel sounds were normal. EXTREMITIES: Show no leg edema. Peripheral pulses are not palpable. NEUROLOGIC: Memory showed no deficit. ASSESSMENT AND PLAN: 1. Paroxysmal atrial fibrillation/flutter with rapid ventricular response. The most likely reason is that patient has been noncompliant with his medications, although on questioning him, he appears to know something about these medications but was not able to give me precise information to confirm that indeed he is fully compliant with his medications. He has partially convinced me that he has been taking his Pradaxa and, therefore, I think it is safe to resume his antiarrhythmic agent and rate control agents to facilitate him converting back to sinus rhythm. If he fails to convert on flecainide, then we will do direct current cardioversion in the next 1-2 days. 2. Congestive heart failure. The patient has congestive heart failure due to severe pulmonary hypertension and noncompliance with Lasix, as evidenced by the excess pills in his Lasix bottle. His shortness of breath is due to chronic COPD perhaps with exacerbation and failure to take his Lasix, causing excessive fluid retention and ascities . 3. Anemia. He has mild anemia and this chronic and he has been on iron infusions. 4. Abnormal liver function tests. His alkaline phosphatase and total bilirubin were both high, defer to hospitalist to investigate. 5. Uncontrolled diabetes. He has fluctuating Accu-Chek of 290-217. Blood sugar situation clearly is not controlled. 6. High NT-BNP. This is likely secondary to his very severe pulmonary hypertension, most recent cardiac catheterization showed that he does not have left ventricular systolic dysfunction, although he may have a mild case of left ventricular diastolic dysfunction. RECOMMENDATIONS: We will convert IV Cardizem back to oral long-acting Cardizem for rate control and will re-institute flecainide 50 mg p.o. b.i.d. and check EKG for QRS duration and QT intervals for the next 3 days. We definitely need to be continuing the Pradaxa 150 mg q.12 h. to maintain his anticoagulation for stroke prevention. The patient is to be kept in the hospital for reloading of flecainide for the next 3 days while we check his EKG parameters. If on the third day he fails to convert back to sinus rhythm, DC cardioversion is recommended. DICTATING PHYSICIAN: MARCO ANTONIO COLBERT M.D. [id number] PHY#: [id number] ID: [id number] JOB#: [id number] ACCT: [id number] cc:MARCO ANTONIO COLBERT M.D. > [facility]
[2016-10-30 05:16] LABS: ANION GAP 7 (5-19); BLOOD UREA NITROGEN 30 mg/dL (7-20); CALCIUM 9.7 mg/dL (8.4-10.2); CARBON DIOXIDE 29 mmol/L (22-30); CHLORIDE 102 mmol/L (98-107); GLUCOSE 161 mg/dL (75-110); MAGNESIUM 2.1 mg/dL (1.6-2.3); SODIUM 138.2 mmol/L (137-145)
[2016-10-30] MEDS ORDERED: FUROSEMIDE 40 MG TABLET PO SCH (08:00)
--- NOTE | 2016-10-30 08:20 | EKG REPORT ---
SEVERITY:- ABNORMAL ECG - ATRIAL FLUTTER, A-RATE 263 RIGHT BUNDLE BRANCH BLOCK : Confirmed by: Jose Luis Etienne MD 30-Oct-2016 08:19:49
[2016-10-30] MEDS: FUROSEMIDE 40 MG TABLET PO SCH (08:22)
[2016-10-30] MEDS: GLIPIZIDE XL 5 MG TAB.ER.24 PO SCH (08:28)
[2016-10-30] MEDS: INSULIN LISPRO 100 UNIT/ML 3 ML VIAL SUBCUT PRN ×2 (08:55→23:03)
[2016-10-30] MEDS: CEFTRIAXONE 1 GM/D5W RTU 1 GM/50 ML RTUPB IV SCH (09:51)
[2016-10-30] MEDS: ARIPIPRAZOLE 5 MG TABLET PO SCH (09:51)
[2016-10-30] MEDS: DABIGATRAN ETEXILATE 150 MG CAPSULE PO SCH ×2 (09:52→21:11)
[2016-10-30] MEDS: DILTIAZEM HCL 120 MG CAP.SR.24H PO SCH ×2 (09:53→21:12)
[2016-10-30] MEDS: FLUTICASONE/SALMETEROL DISKUS 250-50 MCG/DOSE IH SCH (09:59)
[2016-10-30] MEDS: PREGABALIN 100 MG CAPSULE PO SCH ×2 (09:59→21:12)
[2016-10-30] MEDS ORDERED: FLUTICASONE/SALMETEROL DISKUS 250-50 MCG/DOSE IH SCH (10:00)
[2016-10-30] MEDS ORDERED: (PENDING PHARMACY ID) (Aripiprazole [Abilify 10 Mg Tablet] 10 MG) PO SCH (10:00)
[2016-10-30] MEDS ORDERED: FLECAINIDE ACETATE 100 MG TABLET PO SCH (10:00)
[2016-10-30] MEDS: AZITHROMYCIN 500 MG in DEXTROSE 5%-WATER 250 ML IV SCH (11:08)
[2016-10-30] MEDS: FUROSEMIDE 20 MG TABLET PO SCH (12:17)
--- NOTE | 2016-10-30 16:08 | PDOC PROGRESS REPORT ---
Subjective Progress Note for:: 10/30/16 Subjective:: The patient was seen earlier today on rounds. She states that he feels much better than he did when he came in. The patient has been dissipated and physical therapy. The patient denies any nausea, vomiting, diarrhea, shortness of breath, dizziness, chest pain, heart palpitations, wheezing, fevers, or chills. The patient has remained afebrile. Blood pressures have been in a good range. When prompted the patient voices no other concerns at this time. Review of systems: The rest of the review of systems is negative. Physical Exam Vital Signs: Temp Pulse Resp BP Pulse Ox 95.6 F L 89 14 131/83 H 98 10/30/16 08:00 10/30/16 15:30 10/30/16 15:30 10/30/16 08:00 10/30/16 15:30 Intake & Output 10/28/16 10/29/16 10/30/16 23:59 23:59 23:59 Intake Total 1619 1246 Output Total 2033 1900 Balance -414 -654 Weight 80.9 kg General appearance: PRESENT: no acute distress, cooperative, well-developed, well-nourished Head exam: PRESENT: atraumatic, normocephalic Eye exam: PRESENT: conjunctiva pink, EOMI, PERRLA. ABSENT: scleral icterus Ear exam: PRESENT: normal external ear exam Mouth exam: PRESENT: moist, tongue midline Neck exam: ABSENT: carotid bruit, JVD, lymphadenopathy, thyromegaly Respiratory exam: PRESENT: clear to auscultation fernando. ABSENT: rales, rhonchi, wheezes Cardiovascular exam: PRESENT: irregular rhythm. ABSENT: diastolic murmur, rubs , systolic murmur Pulses: PRESENT: normal dorsalis pedis pul Vascular exam: PRESENT: normal capillary refill GI/Abdominal exam: PRESENT: normal bowel sounds, soft. ABSENT: distended, guarding, mass, organolmegaly, rebound, tenderness Rectal exam: PRESENT: deferred Extremities exam: PRESENT: full ROM. ABSENT: calf tenderness, clubbing, pedal edema Neurological exam: PRESENT: alert, awake, oriented to person, oriented to place , oriented to time, oriented to situation, CN II-XII grossly intact. ABSENT: motor sensory deficit Psychiatric exam: PRESENT: appropriate affect, normal mood. ABSENT: homicidal ideation, suicidal ideation Skin exam: PRESENT: dry, intact, warm. ABSENT: cyanosis, rash Results Laboratory Results: 10/29/16 08:40 10/30/16 04:39 10/30/16 04:39 Sodium 138.2 Potassium 5.0 Chloride 102 Carbon Dioxide 29 Anion Gap 7 BUN 30 H Creatinine 0.90 Est GFR ( Amer) > 60 Est GFR (Non-Af Amer) > 60 Glucose 161 H Calcium 9.7 Magnesium 2.1 10/29/16 10/30/16 08:40 04:39 Troponin I < 0.012 NT-Pro-B Natriuret Pep 7240 H Impressions: Chest X-Ray 10/28/16 00:00 IMPRESSION: No consolidation or pleural effusion. Chest/Abdomen CTA 10/28/16 22:39 IMPRESSION: NO PULMONARY EMBOLI. MILD INTERSTITIAL EDEMA WITH TRACE BILATERAL PLEURAL EFFUSIONS IN THE SETTING OF CARDIOMEGALY. PARTIAL VISUALIZATION OF AT LEAST MILD ASCITES. STABLE TO SLIGHT INCREASE IN MEDIASTINAL AND HILAR LYMPHADENOPATHY. Abdomen Ultrasound 10/29/16 00:00 IMPRESSION: MILD ASCITES RIGHT UPPER QUADRANT. SPLENOMEGALY. Assessment & Plan - Diagnosis (1) Atrial fibrillation with RVR Is this a current diagnosis for this admission?: YesPlan: The patient has been seen by cardiology. It appears Dr. Hardin started the patient on flecainide and therefore the patient will need to be observed for the next 72 hours.. Do appreciate cardiology input with this. She is anticoagulated with Pradaxa. (2) CHF exacerbation Qualifiers: Congestive heart failure type: unspecified congestive heart failure type Qualified Code(s): I50.9 - Heart failure, unspecified Is this a current diagnosis for this admission?: Yes (3) COPD exacerbation Is this a current diagnosis for this admission?: Yes (4) Dyslipidemia Is this a current diagnosis for this admission?: No (5) Elevated LFTs Is this a current diagnosis for this admission?: Yes (6) AMALIA (obstructive sleep apnea) Is this a current diagnosis for this admission?: Yes (7) COPD (chronic obstructive pulmonary disease) Qualifiers: COPD type: unspecified COPD Qualified Code(s): J44.9 - Chronic obstructive pulmonary disease, unspecified (8) Pulmonary nodules Is this a current diagnosis for this admission?: Yes (9) Ascites Qualifiers: Ascites type: other type Qualified Code(s): R18.8 - Other ascites Is this a current diagnosis for this admission?: YesPlan: Uncertain of the exact etiology of this. Could possibly be due to heart failure. Will obtain echocardiogram from cardiology. Not enough for a paracentesis. (10) Diabetes mellitus type 2 in obese Is this a current diagnosis for this admission?: YesPlan: Will continue sliding scale coverage. (11) Anticoagulated Is this a current diagnosis for this admission?: Yes - Time Time Spent with patient: 25-34 minutes Medications reviewed and adjusted accordingly: Yes Anticipated discharge: Home Within: within 72 hours
--- NOTE | 2016-10-30 19:53 | XCELERA REPORT ---
[address] [address] Transthoracic Echocardiogram Report Name: FANG HERNANDEZ Age: 66 yrs Gender: Male : 1950 Patient Status: Inpatient Patient Location: [id number]\S\317\S\A Study Date: 10/30/2016 10:24 AM Height: 67 in Weight: 210 lb BSA: 2.1 m2 Reason For Study: AFIB Ordering Physician: JOSE LUIS COLBERT Performed By: Christi Starr Interpretation Summary No signif post pericardial effusion. AV 3 cusps with calclified leaflets, no by doppler, moderate AR with mild LV enlargement. MV showed mild annular calcification. No MS, no MVP. mod MR with severe LA enlargement, GREG 54.4. LV showed dyskinetic IVS with diffuse hypokinesis, except LV apex. Overall LVEF mildly reduced, 45-50%. diastolic function not assessed. RV is mod enlarged and mod systolic dysfunction, TAPSE 9.4 mm, RVSP > 70 mm Hg, severe pulm hypertension, with severe LA enlargement, GREG 54.4. Dilated IVC. MMode/2D Measurements \T\ Calculations RVDd: 5.1 cm LVIDd: 5.1 cm FS: 24.2 % EPSS: 1.3 cm IVSd: 0.89 cm LVIDs: 3.8 cm EDV(Teich): LVPWd: 0.87 cm 121.9 ml ESV(Teich): 63.6 ml EF(Teich): 47.8 % Ao root diam: LVOT diam: LVLd ap4: 7.9 cm SV(MOD-sp4): 57.0 ml 3.1 cm 2.1 cm EDV(MOD-sp4): Ao root area: LVOT area: 111.0 ml 7.7 cm2 3.6 cm2 LVLs ap4: 7.1 cm LA dimension: ESV(MOD-sp4): 5.2 cm 54.0 ml EF(MOD-sp4): 51.4 % LA A2Cs: 28.5 cm2 LA A4Cs: LA length: 6.4 cm LA Vol Index (BP): 28.2 cm2 51.4 ml/m2 LA Volume: 106.1 ml Doppler Measurements \T\ Calculations MV E max hussein: MV P1/2t max hussein: Ao V2 max: AI max hussein: 127.8 cm/sec 128.3 cm/sec 139.1 cm/sec 363.8 cm/sec MV A max hussein: MV P1/2t: 39.2 msec Ao max PG: AI max P.2 cm/sec 7.7 mmHg 52.9 mmHg MV E/A: 2.0 MVA(P1/2t): 5.6 cm2 AI dec slope: MV dec slope: FESTUS(V,D): 2.1 cm2 958.5 cm/sec2 108.1 cm/sec2 AI P1/2t: 985.9 msec LV V1 max PG: PA V2 max: TR max hussein: 2.6 mmHg 59.6 cm/sec 376.8 cm/sec LV V1 max: PA max P.4 mmHg TR max P.9 cm/sec 56.8 mmHg Left Ventricle The left ventricle is borderline dilated. There is normal left ventricular wall thickness. LV EF is 45-50%%. LV diastolic function not assessed. There are regional wall motion abnormalities as specified. There is moderate global hypokinesis of the left ventricle. There is septal wall dyskinesis. There is no thrombus. Right Ventricle The right ventricle is moderate to severely dilated. The right ventricular systolic function is moderately reduced. TAPSE 9.6mm. Atria The right atrium is moderately dilated. The left atrium is severely dilated. GREG 54cc/.m2. The interatrial septum is intact with no evidence for an atrial septal defect. Mitral Valve The mitral valve is normal in structure and function. There is mild mitral annular calcification. There is no evidence of mitral valve prolapse. There is no mitral valve stenosis. There is a moderate amount of mitral regurgitation. Aortic Valve The aortic valve is trileaflet. The aortic valve opens well. The aortic valve is sclerotic and shows some degree of functional abnormality. There is no aortic valvular vegetation. There is no aortic valve stenosis. There is a mild to moderate amount of aortic regurgitation. Tricuspid Valve The tricuspid valve is not well visualized, but is grossly normal. There is no tricuspid valve prolapse. There is no tricuspid stenosis. There is a moderate amount of tricuspid regurgitation. Best estimated right ventricular systolic pressure is elevated at >60mmHg. There is servere pulmonary hypertension by echo. Pulmonic Valve The pulmonic valve is not well visualized. Great Vessels The aortic root is normal size. Effusions There is no pericardial effusion. I WMSI = 2.47 % Normal = 13 Segments Size X - Cannot 2 - 4 - 1-2 small Interpret 1 - Normal Hypokinetic 3 - AkineticDyskinetic 3-5 moderate 5 - 6-14 large Aneurysmal 15-16 diffuse : JOSE LUIS COLBERT > Jose Luis Colbert
[2016-10-30] MEDS ORDERED: MONTELUKAST SODIUM 10 MG TABLET PO SCH (22:00)
[2016-10-31 05:01] LABS: ANION GAP 10 (5-19); BLOOD UREA NITROGEN 30 mg/dL (7-20); CARBON DIOXIDE 27 mmol/L (22-30); CHLORIDE 102 mmol/L (98-107); CREATININE RESULT 0.88 mg/dL (0.52-1.25); GLUCOSE 134 mg/dL (75-110); POTASSIUM 4.8 mmol/L (3.6-5.0); SODIUM 138.9 mmol/L (137-145)
[2016-10-31] MEDS: GLIPIZIDE XL 5 MG TAB.ER.24 PO SCH (08:20)
[2016-10-31] MEDS: FUROSEMIDE 40 MG TABLET PO SCH (08:20)
--- NOTE | 2016-10-31 08:44 | EKG REPORT ---
SEVERITY:- ABNORMAL ECG - ATRIAL FLUTTER, A-RATE 263 MULTIPLE PREMATURE COMPLEXES, VENT RIGHT BUNDLE BRANCH BLOCK : Confirmed by: Jose Luis Etienne MD 31-Oct-2016 08:44:04
[2016-10-31] MEDS ORDERED: SPIRONOLACTONE 25 MG TABLET PO SCH (10:00)
[2016-10-31] MEDS ORDERED: LOSARTAN POTASSIUM 25 MG TABLET PO SCH (10:00)
[2016-10-31] MEDS ORDERED: METOPROLOL SUCCINATE 50 MG TAB.SR.24H PO SCH (10:00)
[2016-10-31] MEDS: DILTIAZEM HCL 120 MG CAP.SR.24H PO SCH (10:39)
[2016-10-31] MEDS: PREGABALIN 100 MG CAPSULE PO SCH (10:40)
[2016-10-31] MEDS: FLUTICASONE/SALMETEROL DISKUS 250-50 MCG/DOSE IH SCH (10:40)
[2016-10-31] MEDS: DABIGATRAN ETEXILATE 150 MG CAPSULE PO SCH (10:40)
[2016-10-31] MEDS: ARIPIPRAZOLE 5 MG TABLET PO SCH (10:40)
[2016-10-31] MEDS: INSULIN LISPRO 100 UNIT/ML 3 ML VIAL SUBCUT PRN (11:27)
[2016-10-31] MEDS ORDERED: FUROSEMIDE 20 MG TABLET PO SCH (14:00)
--- NOTE | 2016-10-31 14:18 | PDOC TRANSFER SUMMARY ---
Addendum entered and electronically signed by IAN ROSALES NP 11/10/16 17: 00: General Admission Date/PCP: 10/29/16 02:05 Admission Date: 10/29/16 Transfer Date: 10/31/16 Accepting Facility: [facility] Accepting Physician: Dr. Me[facility] Resuscitation Status: Full Code - Transfer Diagnosis (1) Atrial flutter Is this a current diagnosis for this admission?: Yes (2) Atrial fibrillation with RVR Is this a current diagnosis for this admission?: Yes (3) CHF exacerbation Is this a current diagnosis for this admission?: YesDiagnosis Summary: Acute on chronic systolic (4) COPD exacerbation Is this a current diagnosis for this admission?: Yes (5) Dyslipidemia Is this a current diagnosis for this admission?: No (6) Elevated LFTs Is this a current diagnosis for this admission?: Yes (7) AMALIA (obstructive sleep apnea) Is this a current diagnosis for this admission?: Yes (9) Pulmonary nodules Is this a current diagnosis for this admission?: Yes (10) Ascites Is this a current diagnosis for this admission?: Yes (11) Diabetes mellitus type 2 in obese Is this a current diagnosis for this admission?: Yes (12) Anticoagulated Is this a current diagnosis for this admission?: Yes - Transfer Medications Home Medications: Albuterol Sulfate [Albuterol Sulfate 2.5mg/3 mL] 1 vial IH Q6HP PRN 10/29/16 Aripiprazole [Abilify 10 mg Tablet] 10 mg PO DAILY 10/29/16 Cyclobenzaprine HCl [Flexeril 10 mg Tablet] 10 mg PO TID 10/29/16 Dabigatran Etexilate Mesylate [Pradaxa 150 mg Capsule] 150 mg PO Q12 10/29/16 Fluticasone/Salmeterol [Advair 250-50 Diskus 28 dose] 1 inh IH DAILY 10/29/16 Furosemide [Lasix] 20 mg PO DAILY@1200 10/29/16 Furosemide [Lasix] 40 mg PO QAM 10/29/16 Glipizide [Glipizide ER] 5 mg PO DAILY 10/29/16 Montelukast Sodium [Singulair 10 mg Tablet] 10 mg PO DAILY 10/29/16 Pregabalin [Lyrica 100 Mg Capsule] 100 mg PO BID 10/29/16 Trazodone HCl [Desyrel 50 mg Tablet] 50 mg PO QHS 10/29/16 - Allergies Allergies/Adverse Reactions: No Known Allergies Allergy (Verified 07/13/16 22:43) - Diet/Activity Discharge Diet: Cardiac Original Note: General Admission Date/PCP: 10/29/16 02:05 Dr. Etienne Admission Date: 10/29/16 Transfer Date: 10/31/16 Accepting Facility: [facility] Accepting Physician: Dr. Mehta[facility] Resuscitation Status: Full Code - Transfer Diagnosis (1) Atrial flutter Is this a current diagnosis for this admission?: Yes (2) Atrial fibrillation with RVR Is this a current diagnosis for this admission?: Yes (3) CHF exacerbation Is this a current diagnosis for this admission?: Yes (4) COPD exacerbation Is this a current diagnosis for this admission?: Yes (5) Dyslipidemia Is this a current diagnosis for this admission?: No (6) Elevated LFTs Is this a current diagnosis for this admission?: Yes (7) AMALIA (obstructive sleep apnea) Is this a current diagnosis for this admission?: Yes (9) Pulmonary nodules Is this a current diagnosis for this admission?: Yes (10) Ascites Is this a current diagnosis for this admission?: Yes (11) Diabetes mellitus type 2 in obese Is this a current diagnosis for this admission?: Yes (12) Anticoagulated Is this a current diagnosis for this admission?: Yes - Transfer Medications Home Medications: Albuterol Sulfate [Albuterol Sulfate 2.5mg/3 mL] 1 vial IH Q6HP PRN 10/29/16 Aripiprazole [Abilify 10 mg Tablet] 10 mg PO DAILY 10/29/16 Cyclobenzaprine HCl [Flexeril 10 mg Tablet] 10 mg PO TID 10/29/16 Dabigatran Etexilate Mesylate [Pradaxa 150 mg Capsule] 150 mg PO Q12 10/29/16 Fluticasone/Salmeterol [Advair 250-50 Diskus 28 dose] 1 inh IH DAILY 10/29/16 Furosemide [Lasix] 20 mg PO DAILY@1200 10/29/16 Furosemide [Lasix] 40 mg PO QAM 10/29/16 Glipizide [Glipizide ER] 5 mg PO DAILY 10/29/16 Montelukast Sodium [Singulair 10 mg Tablet] 10 mg PO DAILY 10/29/16 Pregabalin [Lyrica 100 Mg Capsule] 100 mg PO BID 10/29/16 Trazodone HCl [Desyrel 50 mg Tablet] 50 mg PO QHS 10/29/16 Transfer Medications: Current Medications Acetaminophen (Tylenol 325 Mg Tablet) 650 mg PO Q8HP PRN Stop: 11/28/16 02:12 Aripiprazole (Abilify 5 Mg Tablet) 10 mg PO DAILY JANNA Stop: 11/29/16 09:59 Last Admin: 10/31/16 10:40 Dose: 10 mg Cyclobenzaprine HCl (Flexeril 10 Mg Tablet) 10 mg PO TIDP PRN PRN Reason: Spasms Stop: 11/28/16 11:16 Dabigatran (Pradaxa 150 Mg Capsule) 150 mg PO Q12 [facility] Stop: 11/28/16 21:59 Last Admin: 10/31/16 10:40 Dose: 150 mg Dextrose (Dextrose Inj 50% Syringe (25 Gm/50 Ml)) 12.5 gm IV PRN PRN; Protocol PRN Reason: FOR BG 50-69 IN ALERT PATIENT Stop: 11/28/16 02:08 Dextrose (Dextrose Inj 50% Syringe (25 Gm/50 Ml)) 25 gm IV PRN PRN PRN Reason: Protocol Stop: 11/28/16 02:08 Diltiazem HCl (Cardizem Cd 120 Mg Capsule) 120 mg PO Q12 [facility] Stop: 11/28/16 21:59 Last Admin: 10/31/16 10:39 Dose: 120 mg Furosemide (Lasix 40 Mg Tablet) 40 mg PO QAM [facility] Stop: 11/29/16 07:59 Last Admin: 10/31/16 08:20 Dose: 40 mg Furosemide (Lasix 20 Mg Tablet) 40 mg PO DAILY@1400 [facility] Stop: 11/28/16 11:59 Last Admin: 10/31/16 13:46 Dose: 40 mg Glipizide (Glucotrol Xl 5 Mg Tab.Er) 5 mg PO QAM [facility] Stop: 11/29/16 07:59 Last Admin: 10/31/16 08:20 Dose: 5 mg Glucagon (Glucagen Inj 1 Mg Vial) 1 mg IM PRN PRN; Protocol PRN Reason: Evaluate for BG < 70 Stop: 11/28/16 02:08 Glucose (Glutose 40% Gel 15 Gm Tube) 15 gm PO PRN PRN; Protocol PRN Reason: FOR BG 50-69 IN ALERT PATIENT Stop: 11/28/16 02:08 Glucose (Glutose 40% Gel 15 Gm Tube) 30 gm PO PRN PRN; Protocol PRN Reason: FOR BG < 50 IN ALERT PATIENT Stop: 11/28/16 02:08 Guaifenesin (Robitussin Syrup 200 Mg/10 Ml Ud Cup) 200 mg PO QIDP PRN Stop: 11/28/16 02:04 Influenza Virus Vaccine Quadrival (Fluzone Adlt Quad [id number] Vac 0.5 Ml Syr) 0.5 ml IM .AT DISCHARGE PRN PRN Reason: THIS MED IS NOT "PRN" Stop: 11/28/16 03:13 Insulin Human Lispro (Humalog Insulin 100 Unit/1 Ml 3 Ml Vial) 0 - 12 unit SUBCUT ACHSP PRN PRN Reason: Protocol Stop: 11/28/16 02:08 Last Admin: 10/31/16 11:27 Dose: 2 unit Levalbuterol HCl (Xopenex Neb 0.63 Mg/3 Ml Ampul) 0.63 mg NEB RTQ6HP PRN PRN Reason: SHORTNESS OF BREATH Stop: 11/28/16 11:10 Losartan Potassium (Cozaar 25 Mg Tablet) 25 mg PO DAILY [facility] Stop: 11/30/16 09:59 Last Admin: 10/31/16 10:39 Dose: 25 mg Metoprolol Succinate (Toprol Xl 50 Mg Tab.Sr) 50 mg PO DAILY JANNA Stop: 11/30/16 09:59 Last Admin: 10/31/16 10:39 Dose: 50 mg Montelukast Sodium (Singulair 10 Mg Tablet) 10 mg PO QHS JANNA Stop: 11/29/16 21:59 Last Admin: 10/30/16 21:12 Dose: 10 mg Pregabalin (Lyrica 100 Mg Capsule) 100 mg PO Q12 JANNA Stop: 11/28/16 21:59 Last Admin: 10/31/16 10:40 Dose: 100 mg Fluticasone/Salmeterol (Advair 250-50 Diskus 14 Dose/Diskus) 1 inh IH DAILY [facility] Stop: 11/28/16 09:59 Last Admin: 10/31/16 10:40 Dose: 1 inh Sodium Chloride (Saline Flush 2.5 Ml Monoject Prefil Syrin) 2.5 ml IV Q8 [facility] Stop: 11/28/16 05:59 Last Admin: 10/31/16 13:47 Dose: 2.5 ml Spironolactone (Aldactone 25 Mg Tablet) 50 mg PO DAILY [facility] Stop: 11/30/16 09:59 Last Admin: 10/31/16 10:39 Dose: 50 mg - Allergies Allergies/Adverse Reactions: No Known Allergies Allergy (Verified 07/13/16 22:43) - Diet/Activity Discharge Diet: Cardiac Discharge Activity: Activity As Tolerated Hospital Course Hospital Course: FANG HERNANDEZ is a 66 year old male with underlying 24/7 2 L oxygen per nasal cannula home O2 dependent COPD, obstructive sleep apnea, with CPAP currently in the process of being set up, atrial fibrillation, on Pradaxa for same, asthma, type II diabetes mellitus, arthritis, bipolar disorder, who presents to the emergency room for evaluation of above complaint. Patient himself is somewhat of a difficult historian at times. It appears the patient has been noncompliant with her medications especially anticoagulants. Describes a 2 day history of slowly progressive difficulty breathing, in particular with much of any exertion. Cough a bit more productive than usual. However, denies nausea vomiting, fever chills, chest or abdominal pain, diarrhea or dysuria. Neither antibiotic usage nor hospitalization in the past 3 months. Persistently tachycardic into the 130 plus range in the emergency room. The patient is followed by Dr. Etienne with cardiology. The patient was referred to the hospitalist for admission and management. The patient was admitted to [facility]. The patient was diuresed with IV diuretic and continued on home medications including aspirin, beta cristiano, ZULEYMA inhibitor. The patient had significant improvement in symptoms with diuresis. Echocardiogram revealed an ejection fraction of 45-50%, was sent beer pulmonary hypertension, evidence of right-sided heart failure, and global hypokinesis/ dyskinesis. The patient received education and was instructed on dietary habits as well as daily weights. The patient was seen and evaluated by Dr. Etienne with cardiology. According to Dr. Hardin the patient has had significant changes on echocardiogram in comparison to previous studies. During the patient's stay he proceeded from A. fib to a flutter which was new for the patient. Dr. Etienne has asked for transfer to tertiary care center for LISET and cardioversion. Physical Exam Vital Signs: Temp Pulse Resp BP Pulse Ox 97.2 F 90 20 120/53 L 100 10/31/16 11:15 10/31/16 11:15 10/31/16 11:15 10/31/16 11:15 10/31/16 11:15 Pulse Oximeter Continuous Start: 10/29/16 02: 05 Freq: RTQ4 Status: Complete Document 10/30/16 15:30 LDA (Rec: 10/30/16 15:31 LDA [email or web address]) Pulse Oximetry Assessment Equipment Usage Equipment Standby Continuous SpO2 Machine # [id number] Intake & Output 10/29/16 10/30/16 10/31/16 23:59 23:59 23:59 Intake Total 1619 2036 714 Output Total 2030 5691 975 Balance -414 -564 -261 Weight 80.9 kg 86.3 kg General appearance: PRESENT: no acute distress, cooperative, well-developed, well-nourished Head exam: PRESENT: atraumatic, normocephalic Eye exam: PRESENT: conjunctiva pink, EOMI, PERRLA. ABSENT: scleral icterus Ear exam: PRESENT: normal external ear exam Mouth exam: PRESENT: moist, tongue midline Neck exam: ABSENT: carotid bruit, JVD, lymphadenopathy, thyromegaly Respiratory exam: PRESENT: clear to auscultation fernando. ABSENT: rales, rhonchi, wheezes Cardiovascular exam: PRESENT: irregular rhythm. ABSENT: diastolic murmur, rubs , systolic murmur Pulses: PRESENT: normal dorsalis pedis pul Vascular exam: PRESENT: normal capillary refill GI/Abdominal exam: PRESENT: normal bowel sounds, soft. ABSENT: distended, guarding, mass, organolmegaly, rebound, tenderness Rectal exam: PRESENT: deferred Extremities exam: PRESENT: full ROM. ABSENT: calf tenderness, clubbing, pedal edema Neurological exam: PRESENT: alert, awake, oriented to person, oriented to place , oriented to time, oriented to situation, CN II-XII grossly intact. ABSENT: motor sensory deficit Psychiatric exam: PRESENT: appropriate affect, normal mood. ABSENT: homicidal ideation, suicidal ideation Skin exam: PRESENT: dry, intact, warm. ABSENT: cyanosis, rash Results Laboratory Results: Labs- Last Values WBC 3.7 10^3/uL (4.0-10.5) L 10/29/16 08:40 RBC 4.46 10^6/uL (4.35-5.55) 10/29/16 08:40 Hgb 11.3 g/dL (13.5-17.0) L 10/29/16 08:40 Hct 35.0 % (37.9-51.0) L 10/29/16 08:40 MCV 78 fl (80-97) L 10/29/16 08:40 MCH 25.3 pg (27.0-33.4) L 10/29/16 08:40 MCHC 32.3 g/dL (32.0-36.0) 10/29/16 08:40 RDW 23.4 % (11.5-14.0) H 10/29/16 08:40 Plt Count 231 10^3/uL (150-450) 10/29/16 08:40 Seg Neutrophils % 86.5 % (42-78) H 10/29/16 08:40 Lymphocytes % 11.1 % (13-45) L 10/29/16 08:40 Monocytes % 2.0 % (3-13) L 10/29/16 08:40 Eosinophils % 0.0 % (0-6) 10/29/16 08:40 Basophils % 0.4 % (0-2) 10/29/16 08:40 Absolute Neutrophils 3.2 10^3/uL (1.7-8.2) 10/29/16 08:40 Absolute Lymphocytes 0.4 10^3/uL (0.5-4.7) L 10/29/16 08:40 Absolute Monocytes 0.1 10^3/uL (0.1-1.4) 10/29/16 08:40 Absolute Eosinophils 0.0 10^3/uL (0.0-0.6) 10/29/16 08:40 Absolute Basophils 0.0 10^3/uL (0.0-0.2) 10/29/16 08:40 Carbonic Acid 1.00 mmol/L (1.05-1.35) L 10/28/16 20:15 HCO3/H2CO3 Ratio 22:1 10/28/16 20:15 ABG pH 7.45 (7.35-7.45) 10/28/16 20:15 ABG pCO2 33.3 mmHg (35-45) L 10/28/16 20:15 ABG pO2 207.1 mmHg (80-100) H 10/28/16 20:15 ABG HCO3 22.7 mmol/L (20-26) 10/28/16 20:15 ABG Total CO2 23.8 mmol/L (23-27) 10/28/16 20:15 ABG O2 Saturation 99.5 % (94-98) H 10/28/16 20:15 ABG Base Excess -0.7 mmol/L 10/28/16 20:15 FiO2 15L 10/28/16 20:15 Sodium 138.9 mmol/L (137-145) 10/31/16 04:09 Potassium 4.8 mmol/L (3.6-5.0) 10/31/16 04:09 Chloride 102 mmol/L (98-107) 10/31/16 04:09 Carbon Dioxide 27 mmol/L (22-30) 10/31/16 04:09 Anion Gap 10 (5-19) 10/31/16 04:09 BUN 30 mg/dL (7-20) H 10/31/16 04:09 Creatinine 0.88 mg/dL (0.52-1.25) 10/31/16 04:09 Est GFR ( Amer) > 60 (>60) 10/31/16 04:09 Est GFR (Non-Af Amer) > 60 (>60) 10/31/16 04:09 Glucose 134 mg/dL (75-110) H 10/31/16 04:09 POC Glucose 169 mg/dL (70-110) H 10/31/16 11:22 Hemoglobin A1c % 6.1 % (4.7-6.0) H 10/30/16 04:39 Calcium 10.0 mg/dL (8.4-10.2) 10/31/16 04:09 Magnesium 2.1 mg/dL (1.6-2.3) 10/30/16 04:39 Total Bilirubin 1.8 mg/dL (0.2-1.3) H 10/29/16 08:40 Direct Bilirubin 0.0 mg/dL (0.0-0.3) 10/29/16 08:40 AST 27 U/L (17-59) 10/29/16 08:40 ALT 32 U/L (21-72) 10/29/16 08:40 Alkaline Phosphatase 129 U/L (38-126) H 10/29/16 08:40 CK-MB (CK-2) 1.90 ng/mL (<4.55) 10/28/16 19:30 Troponin I < 0.012 ng/mL 10/29/16 08:40 NT-Pro-B Natriuret Pep 7240 pg/mL (5-900) H 10/30/16 04:39 Total Protein 6.5 g/dL (6.3-8.2) 10/29/16 08:40 Albumin 3.7 g/dL (3.5-5.0) 10/29/16 08:40 TSH 0.60 uIU/mL (0.47-4.68) 10/29/16 02:02 Urine Color YELLOW 10/29/16 03:19 Urine Appearance CLEAR 10/29/16 03:19 Urine pH 5.0 (5.0-9.0) 10/29/16 03:19 Ur Specific [place] 1.042 10/29/16 03:19 Urine Protein 30 mg/dL (NEGATIVE) H 10/29/16 03:19 Urine Glucose (UA) NEGATIVE mg/dL (NEGATIVE) 10/29/16 03:19 Urine Ketones TRACE mg/dL (NEGATIVE) H 10/29/16 03:19 Urine Blood NEGATIVE (NEGATIVE) 10/29/16 03:19 Urine Nitrite NEGATIVE (NEGATIVE) 10/29/16 03:19 Urine Bilirubin NEGATIVE (NEGATIVE) 10/29/16 03:19 Urine Urobilinogen NEGATIVE mg/dL (<2.0) 10/29/16 03:19 Ur Leukocyte Esterase NEGATIVE (NEGATIVE) 10/29/16 03:19 Urine WBC (Auto) 1 /HPF 10/29/16 03:19 Urine Mucus (Auto) RARE /LPF 10/29/16 03:19 Urine Ascorbic Acid NEGATIVE (NEGATIVE) 10/29/16 03:19 Urine Opiates Screen NEGATIVE 10/28/16 20:09 Urine Methadone Screen NEGATIVE 10/28/16 20:09 Ur Barbiturates Screen NEGATIVE 10/28/16 20:09 Ur Phencyclidine Scrn NEGATIVE 10/28/16 20:09 Ur Amphetamines Screen NEGATIVE 10/28/16 20:09 U Benzodiazepines Scrn NEGATIVE 10/28/16 20:09 Urine Cocaine Screen NEGATIVE 10/28/16 20:09 U Marijuana (THC) Screen NEGATIVE 10/28/16 20:09 Serum Alcohol < 10 mg/dL (NONE DETECTED) 10/28/16 19:30 Influenza A (Rapid) NEGATIVE (NEGATIVE) 10/28/16 20:44 Influenza B (Rapid) NEGATIVE (NEGATIVE) 10/28/16 20:44 Impressions: Chest X-Ray 10/28/16 00:00 IMPRESSION: No consolidation or pleural effusion. Chest/Abdomen CTA 10/28/16 22:39 IMPRESSION: NO PULMONARY EMBOLI. MILD INTERSTITIAL EDEMA WITH TRACE BILATERAL PLEURAL EFFUSIONS IN THE SETTING OF CARDIOMEGALY. PARTIAL VISUALIZATION OF AT LEAST MILD ASCITES. STABLE TO SLIGHT INCREASE IN MEDIASTINAL AND HILAR LYMPHADENOPATHY. Abdomen Ultrasound 10/29/16 00:00 IMPRESSION: MILD ASCITES RIGHT UPPER QUADRANT. SPLENOMEGALY. Plan Discharge Plan: Patient be transferred to [facility] under the services of [facility]. And as always I would like to thank [facility] and [facility] for graciously participating in the care of this patient. Time Spent: Greater than 30 Minutes
[2016-10-31 16:06] VITALS: BP 107/70
== END 2016-10-31 17:54 | disposition short-term general hospital (02) | DRG 308 ==
LOC: ER 18:34 → EH 10-29 → UNDOADMIN 10-29 → EH 10-29 02:05 → 3W 10-29 02:15
PROVIDERS: ADMIT Family Medicine; ATTEND Family Medicine
PROC: 3E0F73Z Introduction of Anti-inflammatory into Respiratory Tract, Via Natural or Artificial Opening (ICD-10-PCS; principal; 2016-10-29)
DX: I48.0 Paroxysmal atrial fibrillation (principal); I50.41 Acute combined systolic (congestive) and diastolic (congestive) heart failure; J44.1 Chronic obstructive pulmonary disease with (acute) exacerbation; R18.8 Other ascites; I48.92 Unspecified atrial flutter; F31.9 Bipolar disorder, unspecified; M19.90 Unspecified osteoarthritis, unspecified site; G47.33 Obstructive sleep apnea (adult) (pediatric); F51.9 Sleep disorder not due to a substance or known physiological condition, unspecified; J45.909 Unspecified asthma, uncomplicated; N18.3 Chronic kidney disease, stage 3 (moderate); D64.9 Anemia, unspecified; J84.10 Pulmonary fibrosis, unspecified; R79.89 Other specified abnormal findings of blood chemistry; R91.8 Other nonspecific abnormal finding of lung field; I42.9 Cardiomyopathy, unspecified; I27.2 Other secondary pulmonary hypertension; I45.2 Bifascicular block; E11.65 Type 2 diabetes mellitus with hyperglycemia; Z95.0 Presence of cardiac pacemaker; Z79.4 Long term (current) use of insulin; Z91.19 Patient's noncompliance with other medical treatment and regimen; Z87.891 Personal history of nicotine dependence; Z90.49 Acquired absence of other specified parts of digestive tract; Z99.81 Dependence on supplemental oxygen; Z79.01 Long term (current) use of anticoagulants; Z79.02 Long term (current) use of antithrombotics/antiplatelets
CPT/HCPCS: 36415; 71010; 71275; 76700; 80048; 80053; 80307; 81001; 82553; 82803; 82962; 83036; 83735; 83880; 84443; 84484; 85025; 87040; 87804; 93005; 93010; 93306; 93976; 94640; 94762; 94799; 96374; 99285; G8978-GP; G8979-GP; J0456; J0696; J1815; J1940; J2930; J3490; J7030; J7060; J7620

== ENCOUNTER → 2017-02-02 | Outpatient (CLI) | payer MEDICARE, MEDICAID | LOC: OH 13:58 | PROVIDERS: ATTEND Internal Medicine | DX: Z53.9 Procedure and treatment not carried out, unspecified reason (principal) ==

== ENCOUNTER 2017-02-23 16:23 | Emergency (ER) | payer MEDICARE, MEDICAID ==
--- NOTE | 2017-02-23 16:53 | ER Document Report ---
ED Fall - General Chief Complaint: Fall Stated Complaint: FALL/HEAD PAIN Time Seen by Provider: 02/23/17 16:30 Mode of Arrival: Medic Information source: Patient, Outside Facility Records Notes: Male who [facility] fall while he was attempting to go to the bathroom. Patient states he lost his balance but remembers the entire thing and did not lose consciousness. He did hit his head on the bathroom floor and had some bleeding. He is on Pradaxa, blood thinner For A. fib. EMS reported that he may have some altered mental status as he did not know what year it was or who the president was. TRAVEL OUTSIDE OF THE [place] IN LAST 30 DAYS: No - Related data Allergies/Adverse Reactions: No Known Allergies Allergy (Verified 07/13/16 22:43) Past Medical History - General Information source: Patient, Outside Facility Records - Social History Smoking Status: Former Smoker Family History: Reviewed & Not Pertinent - Past Medical History Cardiac Medical History: Reports: Hx Atrial Fibrillation, Hx Hypercholesterolemia Denies: Hx Congestive Heart Failure, Hx DVT, Hx Heart Attack, Hx Pulmonary Embolism Pulmonary Medical History: Reports: Hx Asthma, Hx COPD - on O2, Hx Sleep Apnea Neurological Medical History: Denies: Hx Seizures Endocrine Medical History: Reports: Hx Diabetes Mellitus Type 2. Denies: Hx Diabetes Mellitus Type 1, Hx Hyperthyroidism, Hx Hypothyroidism GI Medical History: Reports: Hx Gastroesophageal Reflux Disease. Denies: Hx Cirrhosis, Hx Hepatitis Musculoskeltal Medical History: Reports Hx Arthritis Skin Medical History: Denies Hx Eczema, Denies Hx Psoriasis Psychiatric Medical History: Reports: Hx Bipolar Disorder, Hx Depression Infectious Medical History: Denies: Hx Hepatitis Past Surgical History: Reports: Hx Cardiac Surgery - Medtronic pacemaker, Hx Cholecystectomy, Hx Pacemaker - Immunizations Immunizations up to date: Yes Hx Diphtheria, Pertussis, Tetanus Vaccination: Yes Review of Systems - Review of Systems Constitutional: No symptoms reported EENT: No symptoms reported Cardiovascular: No symptoms reported Respiratory: No symptoms reported Gastrointestinal: No symptoms reported Genitourinary: No symptoms reported Male Genitourinary: No symptoms reported Musculoskeletal: No symptoms reported Skin: No symptoms reported Hematologic/Lymphatic: No symptoms reported Neurological/Psychological: See HPI Physical Exam - Vital signs Vitals: Temp Pulse Resp BP Pulse Ox 97.3 F 61 14 148/68 H 94 02/23/17 16:31 02/23/17 16:31 02/23/17 16:31 02/23/17 16:31 02/23/17 16:31 - Notes Notes: PHYSICAL EXAMINATION: GENERAL: Chronically ill-appearing, wearing c-collar in bed, but in no acute distress. HEAD: 3 cm diameter hematoma to thePosterior scalp, nontender to palpation, dried blood over posterior scalp to the right, no active bleeding, no obvious laceration, normocephalic. EYES: Pupils equal round and reactive to light, extraocular movements intact, sclera anicteric, conjunctiva are normal. NECK: Normal range of motion, supple without lymphadenopathy LUNGS: CTAB and equal. No wheezes rales or rhonchi. HEART: Regular rate and rhythm without murmurs EXTREMITIES: Normal range of motion, no pitting edema. No cyanosis. NEUROLOGICAL: alert to person and place but not time, Cranial nerves grossly intact. Normal sensory/motor exams. PSYCH: Normal mood, normal affect. SKIN: Warm, Dry, normal turgor, to the head above Course - Re-evaluation Re-evalutation: 02/23/17 17:43 Hospice nurse is here and actually states that this is his normal mental status. He is able to tell me his name, where he is, but is not oriented to time which hospice state is normal. CT of the head and cervical spine are negative for any acute pathology. Patient is no longer bleeding. He is safe to [facility] back to the jail. He is complaining of no other pain. - Vital Signs Vital signs: Temp Pulse Resp BP Pulse Ox 97.3 F 61 16 148/69 H 96 02/23/17 16:31 02/23/17 16:31 02/23/17 18:01 02/23/17 18:01 02/23/17 18:01 Discharge - Discharge Clinical Impression: Fall Qualifiers: Encounter type: initial encounter Qualified Code(s): W19.XXXA - Unspecified fall, initial encounter Head injury Qualifiers: Encounter type: initial encounter Qualified Code(s): S09.90XA - Unspecified injury of head, initial encounter Additional Instructions: Please be careful walking, walk with a cane or walker if you have one. Return immediately for any new or worsening symptoms. Follow up with primary care provider, call tomorrow to make followup appointment. Referrals: MITUL MCQUEEN PA-C [Primary Care Provider] - Follow up as needed
--- NOTE | 2017-02-23 17:21 | RADIOLOGY REPORT (SQ) ---
EXAM DESCRIPTION: CT HEAD WITHOUT COMPLETED DATE/TIME: 02/23/2017 5:09 pm REASON FOR STUDY: fall, pain COMPARISON: 07/13/2016 TECHNIQUE: Axial images acquired through the brain without intravenous contrast. Images reviewed wi th bone, brain and subdural windows. Images stored on PACS. All CT scanners at this facility use dose modulation, iterative reconstruction, and/or weight based d osing when appropriate to reduce radiation dose to as low as reasonably achievable (ALARA). [facility]: Dose Right [facility]: CareDose [facility]: Dose Right [facility]: Teradose 4D [facility]: Douban RADIATION DOSE: 62.11 mGy. LIMITATIONS: None. FINDINGS: VENTRICLES: Normal size and contour. CEREBRUM: No masses. No hemorrhage. No midline shift. Normal dickerson/white matter differentiation. N o evidence for acute infarction. CEREBELLUM: No masses. No hemorrhage. No alteration of density. No evidence for acute infarction. EXTRAAXIAL SPACES: No fluid collections. No masses. ORBITS AND GLOBE: No intra- or extraconal masses. Normal contour of globe without masses. CALVARIUM: No fracture. PARANASAL SINUSES: No fluid or mucosal thickening. SOFT TISSUES: There is very mild soft tissue swelling posteriorly. OTHER: No other significant finding. IMPRESSION: No acute intracranial event. Mild soft tissue swelling posteriorly. TECHNICAL DOCUMENTATION: JOB ID: [id number] Quality ID # [id number]: Final reports with documentation of one or more dose reduction techniques (e.g., Au tomated exposure control, adjustment of the mA and/or kV according to patient size, use of iterative reconstruction technique) 2010 [employer]- All Rights Reserved
--- NOTE | 2017-02-23 17:24 | RADIOLOGY REPORT (SQ) ---
EXAM DESCRIPTION: CT CERVICAL SPINE WITHOUT COMPLETED DATE/TIME: 02/23/2017 5:09 pm REASON FOR STUDY: fall, pain COMPARISON: None. TECHNIQUE: Axial images acquired through the cervical spine without intravenous contrast. Images re viewed with lung, soft tissue and bone windows. Reconstructed coronal and sagittal MPR images review ed. Images stored on PACS. All CT scanners at this facility use dose modulation, iterative reconstruction, and/or weight based d osing when appropriate to reduce radiation dose to as low as reasonably achievable (ALARA). [facility]: Dose Right [facility]: CareDose [facility]: Dose Right [facility]: Teradose 4D [facility]: Ambric RADIATION DOSE: 17.45 mGy. LIMITATIONS: None. FINDINGS: ALIGNMENT: Anatomic. MINERALIZATION: Normal. VERTEBRAL BODIES: No fractures or dislocation. DISCS: There is disc space narrowing throughout the cervical spine. Changes are most prominent at C5 -C6 with there are small anterior and posterior osteophytes. FACETS, LATERAL MASSES, POSTERIOR ELEMENTS: There is posterior element hypertrophy and degenerative c hanges most marked at C2-3 on the right. HARDWARE: None in the spine. VISUALIZED RIBS: No fractures. LUNG APICES AND SOFT TISSUES: No significant or acute findings. OTHER: No other significant finding. IMPRESSION: Mild degenerative changes. No acute findings. TECHNICAL DOCUMENTATION: JOB ID: [id number] Quality ID # [id number]: Final reports with documentation of one or more dose reduction techniques (e.g., Au tomated exposure control, adjustment of the mA and/or kV according to patient size, use of iterative reconstruction technique) 2010 [employer]- All Rights Reserved
[2017-02-23 20:02] VITALS: BP 160/67
--- NOTE | 2017-02-24 09:11 | EKG REPORT ---
SEVERITY:- ABNORMAL ECG - SINUS RHYTHM RIGHT BUNDLE BRANCH BLOCK : Confirmed by: Shanel Sanchez MD 24-Feb-2017 09:10:19
== END 2017-02-23 21:05 ==
LOC: ER 16:23
DX: S09.90XA Unspecified injury of head, initial encounter (principal); R51 Headache; W19.XXXA Unspecified fall, initial encounter; I48.91 Unspecified atrial fibrillation; Z79.899 Other long term (current) drug therapy; Z87.891 Personal history of nicotine dependence
CPT/HCPCS: 70450; 72125; 93005; 93010; 99284